=== PATIENT | male | born 1995 | race Caucasian/White ===

== ENCOUNTER → 2017-01-04 | Day surgery (SDC) | payer OTHER ==
[~2017-01-04] MED LIST: BUPIVACAINE/EPINEPHRINE 0.25% 50 ML VIAL ONE; KETOROLAC TROMETHAMINE 30 MG/ML (IVP) VIAL IV PUSH ONE; LACTATED RINGER'S 1000 ML INJ 1,000 ML ONE; MEPERIDINE HCL 50 MG/ML VIAL ONE; MIDAZOLAM HCL 5 MG/ML VIAL (1 ML) ONE; MORPHINE SULFATE 4 MG/ML INJ ONE; ONDANSETRON HCL 4 MG/2 ML VIAL IV PUSH ONE; PROPOFOL 200 MG/20 ML AMP IV ONE; ceFAZolin INJ 1,000 MG VIAL ONE; oxyCODONE/ACETAMINOPHEN 5 MG/325 MG TAB ONE
--- NOTE | 2017-01-04 13:43 | MP ---
cc: SURINDER GONZALEZ M.D. DATE OF SURGERY: 01/04/2017 PREOPERATIVE DIAGNOSIS Left tibia nonunion medial malleolus. POSTOPERATIVE DIAGNOSIS Left tibia nonunion medial malleolus. PROCEDURE Right tibia repair of nonunion with left iliac crest bone graft and using [employer] hook plate and cortical screw. ANESTHETIC General. ESTIMATED BLOOD LOSS 100 ccs. SURGEON Surinder Gonzalez MD ANATOMICAL EMBALMER SURGEON CHEN Lovett TOURNIQUET TIME None. COMPLICATIONS None known. INDICATION Jg Dinero is a 21-year-old male who sustained a left ankle fracture with significant soft tissue wound and has gone on to nonunion. He has no obvious infection. At this point the recommendation is to proceed with surgery, open reduction, internal fixation, repair of the nonunion with left iliac crest bone graft. The risks, benefits were thoroughly discussed and the options thoroughly discussed and detailed informed consent was obtained. PROCEDURE The patient was brought to the operating room and is placed under general anesthetic. The left lower extremity is draped and prepped in usual sterile fashion. The left iliac crest was draped and prepped in the usual sterile fashion. IV antibiotics were given. Time-out was completed. It should be noted that assistant shift supervisor Del Zaragoza assisted both the level of the ankle and the level of the iliac crest and his skill set was medically necessary for the performance of the operation. We first evaluated the left ankle using fluoroscopy. The time-out was completed. We then proceeded with our incision, meticulous hemostasis. We made flaps in the subcutaneous level and then split the periosteum and then did subperiosteal dissection exposing the nonunion site. There was a lot of fiber in the nonunion site. Some of the bone appeared to be fairly well secure posteriorly, so we did not completely take that down but the midportion of the nonunion and all the way across anteriorly had a significant amount of soft tissue, fibrous tissue and no bone in that area and we took all of that so that we had good bleeding bone on both sides. We then took our measurements of what we needed for bone harvesting and then came up to the left iliac crest and exposed that, subperiosteal dissection and harvested a section of bone which was the dorsal cortex of the iliac crest and cancellus bone underlying it and the measurements were 1 cm and long, 3 x 3 cm tapering to one end. Then once this was harvested we brought this back to the iliac crest area and we thoroughly irrigated this out. We clarified that we were down to bleeding bone and then we proceeded to and packed this bone graft into place and it appeared to be very anatomic. We put plantar flexion to open up the site and then impacted in with bone tamps and then closed this back up and it appeared very anatomic. Then we selected a hook plate for the medial malleolus and applied that with compression screws compressing the fracture site, further securing the bone graft and we used one locking screw as well and then we used a screw perpendicular to the fracture site from the inferior medial malleolus obliquely 60 mm in length. Hard copy x-ray AP and lateral showed final result. Hemostasis was very good. We irrigated out both incisions then proceeded to delicately close in layers, for the left iliac crest it was the fascial layer overlying the bone and then the subcutaneous layer, then subcuticular on the skin and Steri-Strips and for the left ankle it was the periosteal layer and then there was another layer overlying this and then the subcu and then vertical mattress Nylon on the skin. Xeroform was applied. A sugar-tong splint was applied over sterile dressing. The patient had a block in the ankle and had local injection on the hip. He tolerated the procedure well, was awoken and returned to the recovery room in stable condition. MD DEANDRE Love/JOSELO /11:00 AM /1:13 PM
== END | disposition home or self-care (01) ==
LOC: ESDC 07:05
PROVIDERS: ATTEND Orthopaedic Surgery Sports Medicine
DX: S82.52XA Displaced fracture of medial malleolus of left tibia, initial encounter for closed fracture (principal)
CPT/HCPCS: 01480; 27724; 64450; 73600; 76000; C1713; J0690; J1885; J2175; J2250; J2270; J2405; J3010; J7120